=== PATIENT | female | born 1975 | race African-American/Black ===

== ENCOUNTER 2016-08-16 09:28 | Emergency (ER) | payer OTHER ==
[~2016-08-16] VITALS: Ht 165.1 cm; Wt 61.5 kg
[~2016-08-16 09:28] MED LIST: PREN1TAB52 PO
[2016-08-16 09:59] LABS: BASOPHILS % (AUTO) 0.8 % (0.0-2.0); EOSINOPHILS % (AUTO) 3.6 % (1.0-6.0); HEMATOCRIT 39.3 % (36-46); HEMOGLOBIN 12.6 g/dL (12.0-16.0); LYMPHOCYTES # (AUTO) 1.7 K/uL (1.0-4.8); LYMPHOCYTES % (AUTO) 42.8 % (22.0-44.0); MEAN CORPUSCULAR HEMOGLOBIN 27.5 pg (26.0-34.0); MEAN CORPUSCULAR HGB CONC 32.1 G/dL (31.0-37.0); MEAN CORPUSCULAR VOLUME 86 fL (80-100); MONOCYTES # (AUTO) 0.2 K/uL (0.1-1.0); MONOCYTES % (AUTO) 5.4 % (2.0-9.0); NEUTROPHILS # (AUTO) 1.9 K/uL (1.8-7.7); NEUTROPHILS % (AUTO) 47.4 % (40.0-70.0); PLATELET COUNT (AUTO) 276 K/uL (150-450); RED BLOOD CELL COUNT(AUTO) 4.58 MIL/uL (4.00-5.20); RED CELL DISTRIBUTION WIDTH 15.6 % (11.5-14.5); WHITE BLOOD COUNT (AUTO) 4.1 K/uL (4.5-11.0)
[2016-08-16 12:15] VITALS: BP 121/77
== END 2016-08-16 12:17 | disposition home or self-care (01) ==
LOC: EMS 09:29
DX: O02.1 Missed abortion (principal)
CPT/HCPCS: 76801; 76817; 86901; 99285